=== PATIENT | female | born 1960 | race Caucasian/White ===

== ENCOUNTER → 2020-12-31 08:26 | Outpatient (BNVA) | payer OTHER, SELFPAY | PROVIDERS: PCP Hospitalist; Visit Provider Internal Medicine Cardiovascular Disease | DX: I44.7 Left bundle-branch block, unspecified (principal); E78.5 Hyperlipidemia, unspecified; R55 Syncope and collapse | CPT/HCPCS: 93005 ==

== ENCOUNTER 2021-01-09 08:45 | Outpatient (REF) | payer OTHER, SELFPAY ==
[2021-01-09 09:49] LABS: Cholesterol 262 mg/dL; HDL Cholesterol 67 mg/dL; LDL Cholesterol Calculated 179 mg/dl; Triglycerides 83 mg/dL
[2021-01-10 12:02] LABS: CRP High Sensitivity 0.8 mg/L
== END 2021-01-09 08:46 | disposition home or self-care (01) ==
LOC: HO.LAB 08:45
PROVIDERS: PCP Hospitalist; Visit Provider Internal Medicine Cardiovascular Disease
DX: I25.10 Atherosclerotic heart disease of native coronary artery without angina pectoris (principal); E78.5 Hyperlipidemia, unspecified
CPT/HCPCS: 36415; 80061; 86141

== ENCOUNTER → 2021-02-15 08:29 | Outpatient (REF) | payer OTHER, SELFPAY ==
--- NOTE | 2021-02-15 08:33 | CA_ITS ---
Transthoracic Echocardiogram Patient (Last, First, Middle): Odette Mathew Mirela Gender: Female Date of : 1960 Age: 60 Procedure Date: 02/15/2021 Procedure Type: Transthoracic Echocardiogram Location: OP Height: 154.94 cm Weight: 58.97 kg BSA: 1.57 m2 Heart Rate: bpm BP: 120 / 60 mmHg Concrete Puddler: SAMREEN Referring MD: Wicho Sawyer MD Symptoms: R55 - Syncope and collapse Study Quality: Fair ECG Rhythm: Sinus Conclusions: - The left ventricular systolic function is normal. The visually estimated ejection fraction is between 55-60%. - No obvious valvular pathology seen on this study. Findings Left Ventricle Normal left ventricular cavity size. There is normal left ventricular wall thickness. The left ventricular systolic function is normal. The visually estimated ejection fraction is between 55-60%. There is no evidence of regional wall motion abnormalities. Diastolic function is normal for age. Right Ventricle Normal right ventricular cavity size and systolic function. Atria The left atrium is normal in size. The right atrium is normal in size. Aortic Valve There is a normal trileaflet aortic valve. There is no aortic valve stenosis. There is no aortic valve regurgitation. Mitral Valve The mitral valve appears normal. There is trace mitral valve regurgitation. There is no mitral valve stenosis. Pulmonic Valve The pulmonic valve was not well visualized. Tricuspid Valve Normal tricuspid valve structure. There is mild tricuspid valve regurgitation. The pulmonary artery systolic pressure is normal. Great Vessels The aortic annulus, sinuses of valsalva, and asc aorta are normal in size. Venous The inferior vena cava is normal in size and collapses greater than 50% with inspiration. Pericardium/Pleural There is no evidence of pericardial effusion. Prior Study Comparison No significant change compared to prior study dated: 10/07/2018. Recommendations, Care & Conclusions No obvious valvular pathology seen on this study. Measurements 2D Linear Measurements IVSd: 0.89 0.6-0.9/0.6-1.0 cm LVIDd: 3.91 3.9-5.3/4.2-5.9 cm LVIDd Index: 2.49 2.4-3.2/2.2-3.1 cm/m2 LVIDs: 2.82 2.0-3.6 cm LVPWd: 0.87 0.7-1.1 cm Ao Root: 2.30 2.1-3.5 cm LA Diam: 2.60 2.7-3.8/3.0-4.0 cm LAIDs Index: 1.66 1.5-2.3 cm/m2 LV Mass: 127.71 67-162/88-224 g LV Mass Index: 81.34 43-95/49-115 g/m2 LVOT Diam: 2.00 3.0+(-)1.3 cm 2D Systolic Function EF 4C: 55.10 >55% EF 2C: 73.50 >55% EF BiP: 66.20 >55% Mitral Valve MV Pk E: 0.66 MV PK A: 0.63 MV Decel Time: 158.00 E/A: 1.10 E'Lateral: 11.50 E'Medial: 9.86 E/E' Med: 6.70 E/E' Lat: 5.70 PHT: 46.00 MVA PHT: 4.78 Decel [place]: 4.16 Aortic Valve AoV Pk Duke: 1.25 AoV Pk Grad: 6.00 LVOT LVOT Pk Duke: 1.06 LVOT Mn Duke: 0.63 LVOT VTI: 0.23 LVOT Pk Grad: 4.00 LVOT Mn Grad: 2.00 LVOT Diam: 2.00 LVOT Area: 3.14 Diastolic Function MV Pk E: 0.66 MV Pk A: 0.63 E/A: 1.10 E'Medial: 9.86 E/E' Med: 6.70 E' Laterial: 11.50 E/E' Lat: 5.70 Tricuspid Valve TR Pk Duke: 2.06 TR Pk Grad: 17.00 RA Press: 3.00 RVSP: 20.00 Great Vessels Aorta Ao Root-2D: 2.30 2.0-3.7 cm Ao Asc: 2.70 2.1-3.4 cm Updated in Other Vendor System with Status of Final Dennis Yeh MD electronically signed on 02/16/2021 1:39:54 PM with status of Final
== END ==
LOC: HO.CARD 08:29
PROVIDERS: Visit Provider Internal Medicine Cardiovascular Disease
DX: I44.7 Left bundle-branch block, unspecified (principal); R55 Syncope and collapse
CPT/HCPCS: 93306

== ENCOUNTER → 2021-02-20 10:47 | Outpatient (BNVA) | payer OTHER, SELFPAY | PROVIDERS: PCP Hospitalist; Visit Provider Internal Medicine Cardiovascular Disease ==

== ENCOUNTER → 2022-03-04 09:51 | Outpatient (BNVA) | payer OTHER, SELFPAY | PROVIDERS: PCP Hospitalist; Referring Provider Hospitalist; Visit Provider Internal Medicine Cardiovascular Disease | DX: I25.10 Atherosclerotic heart disease of native coronary artery without angina pectoris (principal); I44.7 Left bundle-branch block, unspecified; R55 Syncope and collapse | CPT/HCPCS: 93005 ==

== ENCOUNTER → 2023-02-25 10:41 | Outpatient (REF) | payer OTHER, SELFPAY ==
--- NOTE | 2023-02-25 10:44 | CA_ITS ---
Transthoracic Echocardiogram Patient (Last, First, Middle): Odette Mathew Mirela Gender: Female Date of : 1960 Age: 62 Procedure Date: 02/25/2023 Procedure Type: Transthoracic Echocardiogram Location: OP Height: 154.94 cm Weight: 58.97 kg BSA: 1.57 m2 Heart Rate: bpm BP: 112 / 60 mmHg Supervisor Fireworks Assembly: Referring MD: Wicho Sawyer MD Clipper Operator: Wicho Sawyer MD Symptoms: I44.7 - Left bundle-branch block, unspecified Study Quality: Adequate ECG Rhythm: Sinus Conclusions: - Essentially normal study Findings Left Ventricle Normal left ventricular size, thickness, and systolic function. The visually estimated ejection fraction is between 60-65%. There is paradoxical septal motion consistent with a left bundle branch block. Spectral Doppler is indicative of an impaired relaxation filling pattern. Right Ventricle Normal right ventricular cavity size and systolic function. Atria Both atria are normal in size. There is no evidence of interatrial shunt. Aortic Valve Normal aortic valve structure and function. There is no aortic valve stenosis. There is no aortic valve regurgitation. Mitral Valve Normal mitral valve structure and function. There is no mitral valve regurgitation. There is no mitral valve stenosis. Pulmonic Valve The pulmonic valve is likely normal. Tricuspid Valve Normal tricuspid valve structure. There is trace tricuspid valve regurgitation. The right ventricular systolic pressure is normal. The right ventricular systolic pressure is 20 mmHg. Normal right atrial pressure. There is no evidence of pulmonary hypertension. Great Vessels All visible segments of the aorta are normal in size. The pulmonary artery was not well visualized. Venous The inferior vena cava is normal in size and collapses greater than 50% with inspiration. Pericardium/Pleural There is no evidence of pericardial effusion. Prior Study Comparison No significant change compared to prior study dated: 02/15/2021. Measurements 2D Linear Measurements IVSd: 0.95 0.6-0.9/0.6-1.0 cm LVIDd: 3.22 3.9-5.3/4.2-5.9 cm LVIDd Index: 2.05 2.4-3.2/2.2-3.1 cm/m2 LVIDs: 2.11 2.0-3.6 cm LVPWd: 0.79 0.7-1.1 cm Ao Root: 2.70 2.1-3.5 cm LA Diam: 2.70 2.7-3.8/3.0-4.0 cm LAIDs Index: 1.72 1.5-2.3 cm/m2 LV Mass: 92.57 67-162/88-224 g LV Mass Index: 58.96 43-95/49-115 g/m2 LVOT Diam: 2.00 3.0+(-)1.3 cm 2D Systolic Function EF 4C: 65.90 >55% EF 2C: 66.50 >55% Mitral Valve MV Pk E: 0.63 MV PK A: 0.80 MV Decel Time: 160.00 E/A: 0.80 E'Lateral: 12.20 E'Medial: 9.68 E/E' Med: 6.50 E/E' Lat: 5.20 PHT: 47.00 MVA PHT: 4.68 Decel Eagle: 3.95 Aortic Valve AoV Pk Duke: 1.22 AoV Mn Duke: 0.76 AoV VTI: 0.31 AoV Pk Grad: 6.00 Aov Mn Grad: 3.00 CATARINO Cont.VTI: 1.75 LVOT LVOT Pk Duke: 0.81 LVOT Mn Duke: 0.48 LVOT VTI: 0.17 LVOT Pk Grad: 3.00 LVOT Mn Grad: 1.00 LVOT Diam: 2.00 LVOT Area: 3.14 Diastolic Function MV Pk E: 0.63 MV Pk A: 0.80 E/A: 0.80 E'Medial: 9.68 E/E' Med: 6.50 E' Laterial: 12.20 E/E' Lat: 5.20 Right Ventricle TAPSE (mm): 23.00 Tricuspid Valve TR Pk Duke: 2.07 TR Pk Grad: 17.00 RA Press: 3.00 RVSP: 20.00 Great Vessels Aorta Ao Root-2D: 2.70 2.0-3.7 cm Pulmonary Valve PV Pk Duke: 0.76 Peak PV Grad: 2.00 Updated in Other Vendor System with Status of Final Wicho Sawyer MD electronically signed on 02/25/2023 12:16:27 PM with status of Final
== END ==
LOC: HO.CARD 10:41
PROVIDERS: PCP Internal Medicine; Visit Provider Internal Medicine Cardiovascular Disease
DX: I25.10 Atherosclerotic heart disease of native coronary artery without angina pectoris (principal); I44.7 Left bundle-branch block, unspecified
CPT/HCPCS: 93306

== ENCOUNTER → 2023-03-12 10:00 | Outpatient (BNVA) | payer OTHER, SELFPAY | PROVIDERS: PCP Internal Medicine; Referring Provider Internal Medicine; Visit Provider Internal Medicine Cardiovascular Disease | DX: Z13.89 Encounter for screening for other disorder (principal) ==

== ENCOUNTER 2024-03-21 09:38 | Outpatient (AMB) | payer OTHER, SELFPAY ==
--- NOTE | 2024-03-21 09:44 | MHC.OFFVIS ---
Vital Signs 03/21/24 09:45 Height 5 ft 1 in Weight 116 lb 13.52 oz BMI 22.1 BP 110/72 Blood Pressure Location Lt brachial Position Sitting Pulse 76 Intake Visit Reasons: 1 YEAR FOLLOW UP Intake Note: 1 year follow-up with ekg feeling good Container Repairer Required: No Allergies Penicillins [PENICILLINS] Allergy (Severe, Verified 03/12/23 10:23) ANAPHYLAXIS sertraline [From ZOLOFT] Allergy (Severe, Verified 03/12/23 10:23) ANAPHYLAXIS, swelling of the mouth BLUE CHEESE Allergy (Unknown, Uncoded 08/09/20 18:26) DIFFICULTY BREATHING Statins Allergy (Unknown, Uncoded 11/29/19 00:00) Myositis Medication List - Last Reconciled 03/21/24 by Wicho Sawyer MD aspirin (Adult Aspirin Regimen) 81 mg PO DAILY calcium carbonate (Calcium 500) 500 mg PO DAILY celecoxib [id number] mg PO DAILY cetirizine (Zyrtec) 10 mg PO DAILY PRN evolocumab (Repatha SureClick) 140 mg subcut Q2W fluticasone propionate 50 mcg/actuation (Flonase Allergy Relief) 1 spray intranasal DAILY latanoprost 0.005% 1 drp ophthalmic (eye) DAILY levothyroxine 75 mcg PO DAILY multivitamin (Multiple Vitamins tablet) 1 tab PO DAILY omega-3 fatty acids 1,000 mg PO DAILY trazodone 50 mg PO BEDTIME HPI Comments Details: 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 She has been doing well. She has been having arthritic issue that prevents her from exercising regularly. She has not had any lightheaded episodes of syncopal episodes. She is maintaining adequate hydration. Denies any worsening shortness of breath, orthopnea, PND, leg edema. No prolonged palpitation irregular heartbeat. Denies any exertional chest pain. Intermittently gets chest pain which is atypical and she thinks it is musculoskeletal. [facility] Medical History CAD (coronary artery disease) Hyperlipidemia Hypothyroidism LBBB (left bundle branch block) Syncope Surgical History History of back surgery History of bunionectomy Hx of blepharoplasty Hx of knee surgery Hx of laminectomy Hx of tonsillectomy Family History Father No problems noted. Mother CAD (coronary artery disease) Brother Diabetes Review of Systems Const Denies chills, Denies fatigue, Denies fever(s), Denies frequent falls, Denies weakness, Denies weight gain and Denies weight loss ENT Denies dizziness Card Denies chest pain, Denies leg edema, Denies lightheadedness, Denies palpitations, Denies dyspnea, Denies dyspnea on exertion, Denies orthopnea and Denies other (loss of consciousness) Resp Denies cough, Denies dyspnea and Denies dyspnea on exertion GI Denies hematochezia and Denies change in stool character Musc Denies abnormal gait, Denies muscle weakness, Denies numbness, Denies radiating pain into limb and Denies tingling Neuro Denies abnormal gait, Denies dizziness, Denies frequent falls, Denies numbness, Denies tingling and Denies weakness Endo Denies fatigue and Denies palpitations Physical Exam Vital Signs: Last Vital Signs Pulse 76 03/21/24 09:45 BP 110/72 03/21/24 09:45 BMI result Body Mass Index 22.1 Const General: cooperative, comfortable, alert, awake and well groomed Nutritional Appearance: average body habitus Orientation/consciousness: patient oriented x3 Limitations: no limitations Neck Neck: Yes trachea midline, Yes supple and Yes no JVD Resp Effort & Inspection: normal respiratory effort Auscultation: clear to auscultation bilaterally Cardio Jugular venous distension: no JVD Palpation: normal PMI Rate: regular rate Rhythm: regular rhythm Heart sounds: S1 normal heart sound present and S2 normal heart sound present Neuro General: patient oriented x3 and no focal motor deficits Office Procedures EKG Details: EKG shows normal sinus rhythm with left bundle-branch block. [id number], Complete Assessment & Plan Assessment & Plan (1) CAD (coronary artery disease): Comment: LAD calcium score of 24 Code(s): I25.10 - Atherosclerotic heart disease of [place] coronary artery without angina pectoris Category: Medical Plan: Coronary artery disease, currently asymptomatic without any exertional symptoms. Continue aggressive risk factor modification. Low-dose aspirin therapy is recommended. Continue intense lipid modification. Currently on PCSK9 inhibitor therapy and tolerating well. Could not tolerate statin therapy. LDL is better optimized. Continue the same. Will look into by annual therapy. Advised to call me with any new symptoms. (2) LBBB (left bundle branch block): Code(s): I44.7 - Left bundle-branch block, unspecified Category: Medical Plan: Left bundle-branch block without any obvious symptoms. Continue to monitor clinically. Follow-up echocardiogram in 1 year's time. No interventions required per se for the same. (3) Syncope: Code(s): R55 - Syncope and collapse Category: Medical Plan: Prior history of syncope suspected to be orthostatic in nature. Currently with no symptoms. Pursuing orthostatic precautions. Continue adequate oral hydration. Advise to avoid prolonged standing postures. Will follow up in the clinic in 1 year's time, sooner p.r.n.. Thank you for allowing me to partake in her care Coding Level of Care Code Est Pt Level 4 (78489) Diagnoses CAD (coronary artery disease) I25.10 LBBB (left bundle branch block) I44.7 Syncope R55 CPT Codes EKG - CPT: 44165-[id number], Complete ([id number])
[2024-03-21 09:45] VITALS: BP 110/72; PULSE 76; BMI 22.1
== END 2024-03-21 10:09 | disposition home or self-care (01) ==
PROVIDERS: Visit Provider Internal Medicine Cardiovascular Disease
DX: I25.10 Atherosclerotic heart disease of native coronary artery without angina pectoris (principal); I44.7 Left bundle-branch block, unspecified; R55 Syncope and collapse
CPT/HCPCS: 93010; 99214

== ENCOUNTER → 2024-03-21 09:38 | Outpatient (BNVA) | payer OTHER, SELFPAY | PROVIDERS: Visit Provider Internal Medicine Cardiovascular Disease | DX: I25.10 Atherosclerotic heart disease of native coronary artery without angina pectoris (principal); I44.7 Left bundle-branch block, unspecified; R55 Syncope and collapse | CPT/HCPCS: 93005 ==

== ENCOUNTER 2024-06-10 08:06 | Outpatient (REF) | payer OTHER, SELFPAY ==
[2024-06-10 17:21] LABS: Cholesterol 200 mg/dL (<200); HDL Cholesterol 71 mg/dL (>40); LDL Cholesterol Calculated 105 mg/dL (<100); Triglycerides 122 mg/dL (<150)
[2024-06-13 13:43] LABS: CRP High Sensitivity 0.4 mg/L
== END 2024-06-10 08:07 | disposition home or self-care (01) ==
LOC: HO.LAB 08:06
PROVIDERS: PCP Internal Medicine; Visit Provider Nurse Practitioner
DX: I25.10 Atherosclerotic heart disease of native coronary artery without angina pectoris (principal)
CPT/HCPCS: 36415; 80061; 86141

== ENCOUNTER 2025-03-03 08:20 | Outpatient (REF) | payer OTHER, SELFPAY ==
--- OUTSIDE RECORDS SUMMARY | 2025-03-03 08:25 | XMS_ITS | Encounter Summary ---
Author Organization [facility] Address [address] [place] [address] Care Team Providers Care Target Setter Name Role Phone Pop Byrne Primary Care Provider [phone] Reason for Visit * Reason Onset Date Comments PAC Surgery/procedure Scheduling-David 2024 Encounter Details Date Type Department Care Team (Late st Contact Info) Description 02/20/2025 Telephone [facility] [place] [phone] Telephone Intake, Staff PAC Surgery/procedure Scheduling-David Social History Tobacco Use Types Packs/Day Years Used Date Smoking Tobacco: Never Smokeless Tobacco: Never Comments:: Alcohol Use Standard Drinks/Week Comments Not Currently 0 (1 standard drink = 0.6 oz pur e alcohol) Comments Unknown Sex and Gender Information Value Date Recorded Sex Assigned at Female 11/20/2023 11:04 AM EST Legal Sex Female 11:41 AM EDT Gender Identity Female 11/20/2023 11:04 AM EST Sexual Orientation Straight 12/05/2023 7: 02 PM EST documented as of this encounter Miscellaneous Notes * Telephone Encounter - Loretta Pool - 02/20/2025 4:25 PM EDT Needs to reschedule Injection for and reschedule for 04/04/25 if possible. Please call Odette at [phone] documented in this encounter Plan of Treatment Upcoming Encounters Date Type Department Care Team (Late st Contact Info) Description 04/04/2025 10:00 AM EDT Appointment [facility] [address] [place] [id number] Simone Hernandez MD PhD [address] [place] [id number] documented as of this encounter Visit Diagnoses Not on filedocumented in this encounter Care Teams Target Setter Relationship Specialty Start Date End Date Pop Byrne [address] [place] [address] PCP - General Internal Medicine 11/20/23 documented as of this encounter
--- OUTSIDE RECORDS SUMMARY | 2025-03-03 08:25 | XMS_ITS | Data Portability ---
Author Organization [facility], [address] Address [address] [place] [address] Care Team Providers Care Product Support Analyst Name Role Phone FLY REYES Primary Care Provider Assessment No assessment recorded. Plan of Treatment Reminders Order Date Submit Date Provider Last Modified By Organization Details Last Modified Time Details Appointments None recorded. Lab SARS CoV 2 (COVID-19) Ag, QL, IA, upper respiratory specimen 2024 025 [email or web address] [address] [place] [address], [phone], 5 13:51:42 rapid flu (A+B) 2024 025 [email or web address], [address] [place], [address], 5 13:51:42 Referral None recorded. Procedures None recorded. Surgeries None recorded. Imaging None recorded. Medication Orders prednisone 20 mg tablet 2024 025 [id number], [address], [place], [phone], 5 13:51:50 doxycycline hyclate 100 mg capsule 2024 025 [id number], [address], [place], [phone], 5 13:51:50 Arnuity Ellipta 100 mcg/actuati on powder for inhalation 2024 025 [id number], [address], [place], [phone], 13:58:08 Patient TargetsNo targets recorded. Patient Instructions Encounter Date Encounter Id Patient Instructions Last Modified By Organization Details Last Modified Time 12/04/2024 [id number] bronchitis: care instructions [email or web address] Not available 12/04/2024 13:51:42 Reason for Referral None Reported. Results Created Date Observation Date Name Description Value Unit Range Abnormal Flag Note LastModifiedBy Organization Detail LastModifiedTime 12/04/1912/04/2024 rapid flu (A+B) Unknown Analyte negati ve Not Available [facility] [address] [place] [address], [phone], 12/04/2024 13:36:04 12/04/19 25 12/04/2024 rapid flu (A+B) Unknown Analyte negati ve Not Available [facility] [address] [place] [address], [phone], 12/04/2024 13:36:04 12/04/19 25 12/04/2024 SARS CoV 2 (COVI D-19) Ag, QL, IA, upper respi rator y speci men Unknown Analyte negati ve Not Available [facility] [address] [place] [address], [phone], 12/04/2024 13:35:58 Result Notes None recorded. Problems Name Problem SNOMED Code Status Onset Date Resolution Date Notes Provider Name and Address Organization Details Recorded Time Asthma 332168002 Active Prisca calderon PA - [facility] 13:29:43 Hyperthyroidis m 79824597 Active Prisca calderon PA - [facility] 13:30:13 Arthritis 6965265 Active Prisca calderon PA - [facility] 13:30:29 Problem Notes None recorded. Medical Equipment None Reported. Allergies Allergen ID Allergen Name Allergen Category Reaction Reaction Severity Criticality Documentation Date Start Date Code Code System Note Provider Name and Address Organization Details Recorded Time 8432170 Product containin g penicilli n (product) medicatio n hives Not available Not available 12/04/2024 98831 8001 SNOMED Prisca Gutierrez yumiko PA - [facility] 13:27:57 5583559 Zoloft medicatio n swelling Not available Not available 12/04/2024 57364 RxNorm Prisca Gutierrez yumiko, MS - [facility] 13:28:15 Medications Name Sig Start Date Stop Date Status Note LastModified by Organization Details LastModified Time celecoxib 200 mg capsule TAKE 1 TO 2 CAPSULES BY MOUTH EVERY DAY WITH FOOD active Not Available Not Available No t Available cyclobenzap rine 10 mg tablet active Not Available Not Available Not Available latanoprost 0.005 % eye drops INSTILL 1 DROP INTO BOTH EYES EVERY EVENING active Not Available Not Available No t Available prednisone 10 mg tablet 12/04 completed Not Available Not Available Not Available doxycycline hyclate 100 mg capsule Take 1 capsule twice a day by oral route for 10 days. 2024 active Not Available Not Available Not Avai lable trazodone 50 mg tablet TAKE 1 TABLET BY MOUTH DAILY AT BEDTIME active Not Available Not Available No t Available azithromyci n 250 mg tablet TK 2 TS PO ON DAY 1, THEN TK 1 T PO D FOR 4 DAYS 12/04 completed Not Available Not Available Not Available prednisone 20 mg tablet Take 2 tablets every day by oral route for 5 days. 2024 active Not Available Not Available Not Avai lable alendronate 70 mg tablet TAKE 1 TABLET BY MOUTH ONCE WEEKLY active Not Available Not Available No t Available omeprazole 40 mg capsule,del ayed release TAKE 1 CAPSULE BY MOUTH TWICE DAILY 12/04 completed Not Available Not Available Not Available levothyroxi ne 75 mcg tablet TAKE 1 TABLET BY MOUTH DAILY active Not Available Not Available No t Available brimonidine 0.2 % eye drops INSTILL 1 DROP IN LEFT EYE TWICE DAILY active Not Available Not Available No t Available hydroxychlo roquine 200 mg tablet active Not Available Not Available No t Available ibuprofen 600 mg tablet 12/04 completed Not Available Not Available Not Available albuterol sulfate HFA 90 mcg/actuati on aerosol inhaler INHALE 2 PUFFS BY MOUTH EVERY 8 HOURS active Not Available Not Available No t Available naproxen 500 mg tablet TAKE 1 TABLET BY MOUTH TWICE DAILY active Not Available Not Available No t Available dorzolamide 2 % eye drops INSTILL 1 DROP IN BOTH EYES TWICE DAILY active Not Available Not Available No t Available ezetimibe 10 mg tablet TAKE 1 TABLET BY MOUTH DAILY active Not Available Not Available No t Available doxycycline hyclate 100 mg tablet,jill yed release TAKE 1 CAPSULE BY MOUTH EVERY 12 HOURS FOR 7 DAYS 12/04 completed Not Available Not Available Not Available chlorhexidi ne gluconate 0.12 % mouthwash 12/04 completed Not Available Not Available Not Available Arnuity Ellipta 100 mcg/actuati on powder for inhalation INHALE 1 PUFF BY MOUTH EVERY DAY active Not Available Not Available No t Available Repatha SureClick 140 mg/mL subcutaneou s pen injector active Not Available Not Available Not Available Vitals Date Recorded Body height Body mass index (BMI) Body weight Pain severity - 0-10 verbal numeric rating [Score] - Reported Oxygen saturation Oxygen saturation in Arterial blood by Pulse oximetry Heart rate Respiratory rate Body temperature Systolic blood pressure Diastolic blood pressure Provider Name and Address Organization Details Last Updated DateTime 154.94 cm 24.2 kg/m2 18237.8 2 g 0 98 % 98 % 84 /min 22 /min 97.3 [degF] 126 mm[Hg] 78 mm[Hg] Prisca SMITH - [facility] 13:33:48 Social History Question Answer Notes LastModified by Organizat ion Details LastModified Time Tobacco Smoking Status Never Smoker [facility] Oliveros - [facility] 12/04/2024 13:30:45 What Is Your Level Of Alcohol Consumption? None [email or web address] Information not available 12/04/2024 Are You Currently Employed? Yes [email or web address] Information not available 12/04/2024 Have You Had A Flu Shot This Season? Yes [email or web address] Information not available 12/04/2024 What Was The Date Of Your Most Recent Tobacco Screening? 12/04/2024 [email or web address] Information not available 12/04/2024 Do You Use Any Illicit Or Recreational Drugs? No [email or web address] Information not available 12/04/2024 Have You Recently Traveled Abroad? No [email or web address] Information not available 12/04/2024 Do You Or Have You Ever Used Any Other Forms Of Tobacco Or Nicotine? No [email or web address] Information not available 12/04/2024 Sex: Unknown Functional Status None recorded. Mental Status None recorded. Family History Nothing Reported. Medical History No medical history recorded. Gynecological HistoryNo gynecological history recorded. Obstetrics History GPAL:G 0 P 0 0 0 0 Past Encounters Encounter ID Performer Location Encounter Start Date Encounter Closed Date Diagnosis/Indication Diagnosis SNOMED-CT Code Diagnosis ICD10 Code Diagnosis Note [id number] [facility] [address] [address] 12/01/2020 12:30:13 12/01/2020 14:42:35 [id number] [facility] [address] 01/29/2018 18:25:16 01/29/2018 18:45:09 [id number] [facility] [address] [place] [address] 07/03/2021 14:36:31 07/03/2021 17:38:18 [id number] [facility] [address] [address] 08/26/2020 13:29:10 08/26/2020 14:39:43 [id number] [address] [address] [address] 06/11/2021 17:57:52 06/11/2021 19:15:35 [id number] [address] [place] [address] 05/23/2021 08:15:08 05/23/2021 09:02:48 [id number] [facility] [address] [place] [address] 03/29/2022 15:08:44 03/29/2022 16:28:26 [id number] Hiram Alexander DO [address] [address] [address] 12/04/2024 13:20:36 12/04/2024 13:59:24 Cough 39960665 R05.9 Given Hx and Sx will Rx Abx and steroid burstc/w albuterol prnTrial of mucinex prn congestion Humidified airrest, fluidstyle nol/ibu prn Patient advised to follow up as needed for worsening symptoms or no improvemen t. Discussed concerning red flags with patient and reasons to follow up in the Emergency Department urgently. Exacerbati on of intermittent asthma 923178978 J45.21 Rx as abovestart inhaler steroid controller dailyRevie wed with patient potential adverse side effects of the medication .f/u with PCP to determine need to c/w this medication Health Concerns Section Related Observation LastModified by Organization Detai ls LastModified Time None Recorded Concern Status LastModified by Organization Details LastModified Time None Recorded Advance Directives Directive None Recorded Payers Encounter Date Sequence Insurance Name Policy Number Policy Jerry Covered Member ID Jerry Member ID Guarantor Name 05/23/2021 1 [facility] [id number] 2 Odette M Culcea [id number] Odette Culcea 06/11/[address] [place] [address] [id number] 2 Odette M Culcea [id number] Odette Culcea 07/03/[address] [place] [address] [id number] 2 Odette M Culcea [id number] Odette Culcea 03/29/[address] [place] [address] [id number] 2 Odette M Culcea [id number] Odette Culcea 12/04/[address] [place] [address] [id number] 2 Odette M Culcea [id number] Odette Culcea Notes Date Note Type Note Provider Name and Address Organization Details Recorded Time 5 text/html CoughReported bypatient.Notes:64 yo female c/o cough x 10 d,fever last night to 100.1+ congestion + h/o asthmano controlleralbuterol prn Was treated in early October with azithromycin and prednisone uses albuterol 2-3 x/dnonsmoker No chillsNo nauseaNo vomitingNo wheezeNo difficulty breathing or respiratory distressNo CPNo sinus painNo ear painNo sore throatNo Abdominal painNo diarrheaNo myalgiaNo fatigueNo rashNo HANo dizzinessNo recent travelNo known sick contacts Hiram Alexander, DO [address], [place], [address], PA - [facility] 12/04/2024 14:01:26 OBGyn Episode No OBEpisode recorded.
--- OUTSIDE RECORDS SUMMARY | 2025-03-03 08:25 | XMS_ITS ---
[facility] Organization Unknown Encounters Encounter Type Encounter Reason Primary Diagnosis Location Date Ambulatory [facility] 12/04/2024
--- OUTSIDE RECORDS SUMMARY | 2025-03-03 08:25 | XMS_ITS | Clinical Summary ---
Author Organization [email or web address] Address [address] [place] [address] Care Team Providers Care Director Home Health Name Role Phone Unavailable Primary Care Provider Unavailabl e Immunizations Name Administration Dates Next Due COVID-19 Non-US Vaccine, Pro duct Unknown 11/25/2022 Influenza Injectable Quadriv alant Preservative Free IIV4 MDCK 08/18/2023,08/07/2022,08/08/2021,2019 Influenza Whole 08/22/2020 Influenza injectable quadriv alent IIV4 with preservative 08/03/2019,08/04/2018 Influenza, IIV3, injectable 08/03/2024,0 08/18/2023,08/07/2022,2020,07/24/2021,08/08/2020,08/22/2019,0 08/03/2019,08/18/2018,08/04/2018, 017,09/05/2016,08/24/2015 Influenza, seasonal, injecta ble, preservative free 08/03/2024 Moderna Covid-19 Vaccine 12+ 10/04/2021,09/23/20 21,10/23/2020 Moderna Covid-19 Vaccine 6+ Bivalent 11/25/2022 Pfizer Covid-19 Vaccine 12+ 08/12/2024, 3 Rabies, IM Diploid Cell Culture 10/06/2016,09/22,09/15/2016 Tdap 10/14/2024,08/23/2016,07/24/2006 Zoster, Recombinant 12/02/2021,08/23/2021 Social History Tobacco Use Types Packs/Day Years Used Date Smoking Tobacco: Never Assessed Comments Unknown Sex and Gender Information Value Date Recorded Sex Assigned at Female 09/22/2022 10:37 AM EDT Legal Sex Female 10:37 AM EDT Gender Identity Female 09/22/2022 10:37 AM EDT Sexual Orientation Straight 09/22/2022 10 :37 AM EDT Plan of Treatment Health Maintenance Due Date Last Done Comments CT Colonography 1960 Colonoscopy 1960 Colorectal Cancer Screening 1960 Depression Screening 1960 FIT DNA/Cologuard 1960 FIT 1960 FOBT 1960 HIV Screening 1960 SDOH Screening 1960 Sigmoidoscopy 1960 Alcohol/Substance Use Screening 1972 Tobacco Screening 1972 Hepatitis C Screening 1978 Pneumococcal Vaccine: 50+ Years (1 of 2 - PCV) 1979 Pap Smear 1981 Cervical Cancer Screening 1990 HPV/Cotest 1990 Mammogram 2000 RSV Patients and Patients Aged 60 years or older (1 - Risk 60-74 years 1-dose series) 2020 DTaP/Tdap/Td Vaccines (4 - Td or Tdap) 10/14/2034 10/14/2024, 08/23/2016, 07/24/2006 Zoster Vaccines Completed 12/02/2021, 08/23/2021 Influenza Vaccine Completed 08/03/2024, , 08/18/2023, Additional history exists COVID-19 Vaccine Completed 08/12/2024, , 11/25/2022, Additional history exists HIB Vaccines Aged Out No longer eligi ble based on patient's age to complete this topic HPV Vaccines Aged Out No longer eligi ble based on patient's age to complete this topic Hepatitis A Vaccines Aged Out No long er eligible based on patient's age to complete this topic Hepatitis B Vaccines Aged Out No long er eligible based on patient's age to complete this topic IPV Vaccines Aged Out No longer eligi ble based on patient's age to complete this topic Meningococcal Vaccine Aged Out No carleen valentin eligible based on patient's age to complete this topic RSV under 20 months Aged Out No longe r eligible based on patient's age to complete this topic Rotavirus Vaccines Aged Out No longer eligible based on patient's age to complete this topic Insurance [facility]
--- OUTSIDE RECORDS SUMMARY | 2025-03-03 08:25 | XMS_ITS | Referral Summary ---
Author Organization [facility] Address [address] [place] [address] Care Team Providers Care Farmer Tree [employer] Nut [employer]ps Name Role Phone Pop Byrne Primary Care Provider [phone] Encounters Date Type Department Care Team Description 02/21/2025 Telephone [facility] [address] [place] [address] Telephone Intake, Staff PAC Surgery/procedure Scheduling - David 02/20/2025 Telephone [facility] [address] [place] [phone] Telephone Intake, Staff PAC Surgery/procedure Scheduling-David 02/14/2025 Telephone [facility] [address] [place] [phone] Simone Hernandez MD PhD 02/07/2025 3:00 PM EDT Office Visit [facility] [address] [place] [phone] Simone Hernandez MD PhD Radiculopathy of lumbar region (Primary Dx) 12/15/2024 3:30 PM EST Office Visit [facility] [address] [place] [phone] Sarah Frank NP Radiculopathy of lumbar region (Primary Dx) from Last 3 Months Allergies Active Allergy Reactions Criticality Noted Date Comments Penicillins Hives High Sertraline Angioedema High Medications aspirin 81 mg EC tablet 162 mg daily. Active cholecalciferol (VITAMIN D3) 50,000 unit capsule Take 1 capsule (50,000 Units total) by mouth once a week. 12 capsule 3 02/13/2020 Active celecoxib (CeleBREX) 200 mg capsule Take 200 mg by mouth 2 times a day. Active cetirizine (ZyrTEC) 10 mg tablet Take 10 mg by mouth once a day. Active EPINEPHrine (EPIPEN) 0.3 mg/0.3 mL injection syringe Inject 0.3 mg into the outer thigh muscle as directed as needed for anaphylaxis. 06/03/2023 Active Repatha SureClick 140 mg/mL pen injector Inject 140 mg under the skin every 14 days. 11/17/2023 Active latanoprost (XALATAN) 0.005% ophthalmic solution Instill 1 drop into both eyes once a day. 10/14/2023 Active levothyroxine (SYNTHROID, LEVOTHROID) 75 mcg tablet Take 75 mcg by mouth daily. Active traZODone (DESYREL) 50 mg tablet Take 50 mg by mouth nightly. 03/15/2023 Active cyclobenzaprine (FLEXERIL) 10 mg tablet Take 1 tablet (10 mg total) by mouth 3 times a day as needed for muscle spasms. 30 tablet 3 12/09/2023 Active hydroxychloroqu ine (PLAQUENIL) 200 mg tablet Take 1 tablet (200 mg total) by mouth 2 times a day. 60 tablet 5 12/09/2023 Active brimonidine (ALPHAGAN) 0.2% ophthalmic solution SMARTSI Drop(s) Left Eye Twice Daily 05/05/2024 Active dorzolamide (TRUSOPT) 2% ophthalmic solution SMARTSI Drop(s) In Eye(s) Twice Daily 12/05/2024 Active cyclobenzaprine (FLEXERIL) 10 mg tablet Take 1 tablet (10 mg total) by mouth 3 times a day as needed for muscle spasms for up to 10 days. 30 tablet 12/15/2024 Active dorzolamide-sharon oloL (COSOPT) 22.3-6.8 mg/mL ophthalmic solution SMARTSI Drop(s) In Eye(s) Twice Daily 01/12/2025 Active Active Problems Problem Noted Date Diagnosed Date Cellulitis of ankle 09/21/2016 Lumbar herniated disc 05/31/2015 Lumbar radiculopathy 05/30/2015 Pre-operative exam 03/21/2014 Scoliosis 03/17/2014 Social History Tobacco Use Types Packs/Day Years Used Date Smoking Tobacco: Never Smokeless Tobacco: Never Tobacco Cessation:Counseling Given: Not Answered Comments:: Alcohol Use Standard Drinks/Week Comments Not Currently 0 (1 standard drink = 0.6 oz pur e alcohol) Comments Unknown Sex and Gender Information Value Date Recorded Sex Assigned at Female 11/20/2023 11:04 AM EST Legal Sex Female 11:41 AM EDT Gender Identity Female 11/20/2023 11:04 AM EST Sexual Orientation Straight 12/05/2023 7: 02 PM EST Last Filed Vital Signs Vital Sign Reading Time Taken Comments Blood Pressure 137/80 06/15/2024 1:51 PM EDT Pulse 70 06/15/2024 1:51 PM EDT Temperature 36.5 ??C (97.7 ??F) 06/15/2024 12:56 PM E DT Respiratory Rate - - Oxygen Saturation 98% 06/15/2024 1:51 PM EDT Inhaled Oxygen Concentration - - Weight 56.2 kg (124 lb) 05/31/2015 2:25 PM EDT Height 156.2 cm (5' 1.5 ) 05/31/2015 2:25 PM EDT Body Mass Index 23.05 05/31/2015 2:25 PM EDT Plan of Treatment Upcoming Encounters Date Type Department Care Team (Late st Contact Info) Description 04/04/2025 10:00 AM EDT Appointment [facility] [address] [place] [address] Simone Hernandez MD PhD [address] [place] [address] Insurance [facility] Advance Directives Documents on File Type Date Recorded Patient Spring Repairer Helper Hand Expl anation Advance Directive 03/29/2014 12:00 AM Advan ce Care Directives Advance Directive 03/21/2014 12:00 AM kristy marino Dec Making (Adv.Dir) Care Teams Farmer [employer] Relationship Specialty Start Date End Date Pop Byrne [address] [place] [phone] PCP - General Internal Medicine 11/20/23
--- OUTSIDE RECORDS SUMMARY | 2025-03-03 08:25 | XMS_ITS | Clinical Summary ---
Author Organization [facility] Address [address] [place] [address] Care Team Providers Care Bookkeeper Receptionist Name Role Phone Pop Byrne Primary Care Provider [phone] Allergies Active Allergy Reactions Criticality Noted Date [...] radiculopathy 05/30/2015 Pre-operative exam 03/21/2014 Scoliosis 03/17/2014 Encounters Date Type Department Care Team Description 02/21/2025 Telephone [facility] A [address] [place] [phone] Telephone Intake, Staff PAC Surgery/procedure Scheduling - David 02/20/2025 Telephone [facility] [address] [place] [phone] Telephone Intake, Staff PAC Surgery/procedure Scheduling-David 02/14/2025 Telephone [facility] [address] [place] [phone] Simone Hernandez MD PhD 02/07/2025 3:00 PM EDT Office Visit [facility] [address] [place] [phone] Simone Hernandez MD PhD Radiculopathy of lumbar region (Primary Dx) 12/15/2024 3:30 PM EST Office Visit [facility] [address] [place] [phone] Sarah Frank NP Radiculopathy of lumbar region (Primary Dx) from Last 3 Months Family History Medical History Relation Name Comments Other Father Family History of chronic obstructive pulmonary disease Relation Name Status Comments Father Social History Tobacco Use Types Packs/Day Years [...] Info) Description 04/04/2025 10:00 AM EDT Appointment [facility] [address] [place] [address] Simone Hernandez MD PhD [address] [place] [address] Health Maintenance Due Date Last Done Comments Cervical Cancer Screening 1960 Cologuard 1960 Colon Cancer Screening 1960 Colonoscopy 1960 FOBT / Fit Test 1960 HIV Screening 1960 HPV and Pap Smear 1960 Hepatitis C Screening 1960 Pap Smear 1960 Sigmoidoscopy 1960 Pneumococcal Vaccine: 50+ Years (1 of 2 - PCV) 1979 Mammogram 2000 RSV Vaccine (60+ years old and patients) (1 - Risk 60-74 years 1-dose series) 2020 Alcohol/Substance Use Screening 11/23/2024 Depression Screening and Follow-Up 11/23/2024 Social Drivers of Health Annual Screening 11/23/2024 DTaP,Tdap,and Td Vaccines (4 - Td or Tdap) 10/14/2034 10/14/2024, 08/23/2016, 07/24/2006 Zoster Vaccines Completed 12/02/2021, 08/23/2021 Influenza Vaccine Completed 08/03/2024, , 08/07/2022, Additional history exists COVID-19 Vaccine Completed 08/12/2024, , 11/25/2022, Additional history exists Hepatitis B Vaccines Aged Out No long er eligible based on patient's age to complete this topic Insurance [facility] Advance Directives Documents on File Type Date Recorded Patient Sap Integration Architect Expl anation Advance Directive 03/29/2014 12:00 AM Yandyan miryam Care Directives Advance Directive 03/21/2014 12:00 AM kristy marino Dec Making (Adv.Dir) Care Teams Bookkeeper Receptionist Relationship Specialty Start Date End Date Pop Byrne [address] [place] [phone] PCP - General Internal Medicine 11/20/23
--- OUTSIDE RECORDS SUMMARY | 2025-03-03 08:25 | XMS_ITS | Encounter Summary ---
Author Organization [facility] Address [address] [place] [address] Care Team Providers Care Or Scrub Tech Name Role Phone Pop Byrne Primary Care Provider [phone] Reason for Visit * Reason Onset Date Comments PAC Surgery/procedure Scheduling - David 11/2024 Encounter Details Date Type Department Care Team (Late st Contact Info) Description 02/21/2025 Telephone [facility] [address] [phone] Telephone Intake, Staff PAC Surgery/procedure Scheduling - David Social History Tobacco Use Types Packs/Day Years [...] encounter Miscellaneous Notes * Telephone Encounter - Praveena Valero - 02/21/2025 9:35 AM EDT Pt is calling to cancel her injection genesis with David on 02/24 and she would like to reschedule. Ploease call back at [phone] documented in this encounter Plan of Treatment Upcoming Encounters Date Type Department Care Team (Late Contact Info) Description 04/04/2025 10:00 AM EDT Appointment [facility] [address] [place] [phone] Simone Hernandez MD PhD [address] [place] [address] documented as of this encounter Visit Diagnoses Not on filedocumented in this encounter Care Teams Or Scrub Tech Relationship Specialty Start Date End Date Pop Byrne [address] [place] [address] PCP - General Internal Medicine 11/20/23 documented as of this encounter
[2025-03-03 12:08] LABS: Anion Gap 13 (12-20); Blood Urea Nitrogen 15 mg/dL (9-16); Calcium 8.8 mg/dL (8.4-10.2); Carbon Dioxide 23 mmol/L (22-29); Chloride 108 mmol/L (96-108); Cholesterol 121 mg/dL (<200); Estimated Glomerular Filt Rate > 60; Glucose Random 99 mg/dL (60-115); HDL Cholesterol 54 mg/dL (>40); LDL Cholesterol Calculated 48 mg/dL (<100); Potassium 4.2 mmol/L (3.3-5.1); Sodium 140 mmol/L (135-145); Triglycerides 98 mg/dL (<150)
== END 2025-03-03 08:21 | disposition home or self-care (01) ==
LOC: HO.HHCL 08:20
PROVIDERS: Visit Provider Nurse Practitioner
DX: I25.10 Atherosclerotic heart disease of native coronary artery without angina pectoris (principal); E78.5 Hyperlipidemia, unspecified
CPT/HCPCS: 36415; 80048; 80061

== ENCOUNTER → 2025-03-15 14:52 | Outpatient (REF) | payer OTHER, SELFPAY ==
--- NOTE | 2025-03-15 14:54 | CA_ITS ---
Transthoracic Echocardiogram Patient (Last, First, Middle): Odette Mathew Mirela Gender: Female Date of : 1960 Age: 64 Procedure Date: 03/15/2025 Procedure Type: Transthoracic Echocardiogram Location: OP Height: 154.94 cm Weight: 58.06 kg BSA: 1.56 m2 Heart Rate: bpm BP: 135 / 95 mmHg Fixture Maker: Referring MD: Wicho Sawyer MD Symptoms: I44.7 - Left bundle-branch block, unspecified Study Quality: Adequate ECG Rhythm: Sinus Conclusions: - The left ventricular systolic function is normal. The calculated ejection fraction is 61% by biplane method. - No obvious valvular pathology seen on this study. Findings Left Ventricle Normal left ventricular cavity size. There is normal left ventricular wall thickness. The left ventricular systolic function is normal. The calculated ejection fraction is 61% by biplane method. There is no evidence of regional wall motion abnormalities. There is paradoxical septal motion consistent with a left bundle branch block. Diastolic function is normal for age. Right Ventricle Normal right ventricular cavity size and systolic function. Atria Both atria are normal in size. Aortic Valve There is a normal trileaflet aortic valve. There is no aortic valve stenosis. There is no aortic valve regurgitation. Mitral Valve The mitral valve appears normal. There is trace mitral valve regurgitation. There is no mitral valve stenosis. Pulmonic Valve The pulmonic valve is likely normal. Tricuspid Valve There is trace tricuspid valve regurgitation. There is no evidence of pulmonary hypertension. Great Vessels The asc aorta is normal in size. Venous The inferior vena cava is normal in size and collapses greater than 50% with inspiration. Pericardium/Pleural There is no evidence of pericardial effusion. Prior Study Comparison No significant change compared to prior study dated: 02/25/2023. Recommendations, Care & Conclusions No obvious valvular pathology seen on this study. Measurements 2D Linear Measurements IVSd: 0.90 0.6-0.9/0.6-1.0 cm LVIDd: 3.18 3.9-5.3/4.2-5.9 cm LVIDd Index: 2.04 2.4-3.2/2.2-3.1 cm/m2 LVIDs: 2.08 2.0-3.6 cm LVPWd: 0.91 0.7-1.1 cm Ao Root: 2.70 2.1-3.5 cm LA Diam: 2.80 2.7-3.8/3.0-4.0 cm LAIDs Index: 1.79 1.5-2.3 cm/m2 LV Mass: 96.01 67-162/88-224 g LV Mass Index: 61.55 43-95/49-115 g/m2 LVOT Diam: 2.00 3.0+(-)1.3 cm 2D Systolic Function EF 4C: 64.80 >55% EF 2C: 55.00 >55% EF BiP: 61.20 >55% Mitral Valve MV Pk E: 0.65 MV PK A: 0.71 MV Decel Time: 168.00 E/A: 0.90 E'Lateral: 11.20 E'Medial: 7.07 E/E' Med: 9.20 E/E' Lat: 5.80 PHT: 49.00 MVA PHT: 4.49 Decel [place]: 3.86 Aortic Valve AoV Pk Duke: 1.44 AoV Mn Duke: 0.96 AoV VTI: 0.32 AoV Pk Grad: 8.00 Aov Mn Grad: 4.00 CATARINO Cont.VTI: 1.99 LVOT LVOT Pk Duke: 1.06 LVOT Mn Duke: 0.68 LVOT VTI: 0.20 LVOT Pk Grad: 4.00 LVOT Mn Grad: 2.00 LVOT Diam: 2.00 LVOT Area: 3.14 Diastolic Function MV Pk E: 0.65 MV Pk A: 0.71 E/A: 0.90 E'Medial: 7.07 E/E' Med: 9.20 E' Laterial: 11.20 E/E' Lat: 5.80 Right Ventricle TAPSE (mm): 25.00 TVS' Duke: 12.00 Tricuspid Valve TR Pk Duke: 2.16 TR Pk Grad: 19.00 RA Press: 3.00 RVSP: 22.00 Great Vessels Aorta Ao Root-2D: 2.70 2.0-3.7 cm Ao Asc: 2.80 2.1-3.4 cm Pulmonary Valve PV Pk Duke: 1.11 Peak PV Grad: 5.00 Updated in Other Vendor System with Status of Final Dennis Yeh MD electronically signed on 03/16/2025 11:28:36 AM with status of Final
--- OUTSIDE RECORDS SUMMARY | 2025-03-15 17:44 | XMS_ITS | Encounter Summary ---
Author Organization [facility] Address [address] [place] [address] Care Team Providers Care Physics Department Chair Name Role Phone Pop Byrne Primary Care Provider [phone] Reason for Visit * Reason Onset Date Comments PAC Surgery/procedure Scheduling - David 11/2024 Encounter Details Date Type Department Care Team (Late st Contact Info) Description 02/21/2025 Telephone [facility] [address] [id number] Telephone Intake, Staff PAC Surgery/procedure Scheduling - [...] like to reschedule. Ploease call back at [phone] documented in this encounter Plan of Treatment Upcoming Encounters Date Type Department Care Team (Late Contact Info) Description 04/04/2025 10:00 AM EDT Appointment [facility] [address] [place] [address] Simone Hernandez MD PhD [address] [place] [address] documented as of this encounter Visit Diagnoses Not on filedocumented in this encounter Care Teams Physics Department Chair Relationship Specialty Start Date End Date Pop Byrne [address] [place] [address] PCP - General Internal Medicine 11/20/23 documented as of this encounter
--- OUTSIDE RECORDS SUMMARY | 2025-03-15 17:44 | XMS_ITS | Data Portability ---
Author Organization [facility] Address [address] [place] [address] Care Team Providers Care Commercial Illustrator Name Role Phone FLY REYES Primary Care Provider [phone] Assessment No assessment recorded. Plan of Treatment Reminders Order Date Submit Date Provider Last Modified By Organization Details Last Modified Time Details Appointments None recorded. Lab SARS CoV 2 (COVID-19) Ag, QL, IA, upper respiratory specimen 2024 025 [email or web address] [address] [place] [address], [phone], 5 13:51:42 rapid flu (A+B) 2024 025 [email or web address], [address] [place], [phone], 5 13:51:42 Referral None recorded. Procedures None recorded. Surgeries None recorded. Imaging None recorded. Medication Orders prednisone 20 mg tablet 2024 025 [id number], [address], [place], [phone], 5 13:51:50 doxycycline hyclate 100 mg capsule 2024 025 [id number], [address], [place], [id number], 5 13:51:50 Arnuity Ellipta 100 mcg/actuati on powder for inhalation 2024 025 [id number], [address], [place], [phone], 13:58:08 Patient TargetsNo targets recorded. Patient Instructions Encounter Date Encounter Id Patient Instructions Last Modified By Organization Details Last Modified Time 12/04/2024 [id number] bronchitis: care instructions [email or web address] Not available 12/04/2024 13:51:42 Reason for Referral None Reported. Results Created Date Observation Date Name Description Value Unit Range Abnormal Flag Note LastModifiedBy Organization Detail LastModifiedTime 12/04/1912/04/2024 rapid flu (A+B) Unknown Analyte negati ve Not Available [facility] [address] [place] [address], [phone], 12/04/2024 13:36:04 12/04/19 25 12/04/2024 rapid flu (A+B) Unknown Analyte negati ve Not Available [facility] [address] [place] [address], [phone], 12/04/2024 13:36:04 12/04/19 25 12/04/2024 SARS CoV 2 (COVI D-19) Ag, QL, IA, upper respi rator y speci men Unknown Analyte negati ve Not Available [facility] [address] [place] [address], [phone], 12/04/2024 13:35:58 Result Notes None recorded. Problems Name Problem SNOMED Code Status Onset Date Resolution Date Notes Provider Name and Address Organization Details Recorded Time Asthma 722820970 Active Prisca calderon PA - [facility] 13:29:43 Hyperthyroidis m 96379923 Active Prisca calderon PA - [facility] 13:30:13 Arthritis 5012268 Active Prisca calderon PA - [facility] 13:30:29 Problem Notes None recorded. Medical Equipment None Reported. Allergies Allergen ID Allergen Name Allergen Category Reaction Reaction Severity Criticality Documentation Date Start Date Code Code System Note Provider Name and Address Organization Details Recorded Time 4148616 Product containin g penicilli n (product) medicatio n hives Not available Not available 12/04/2024 36377 8001 SNOMED Prisca Gutierrez yumiko PA - [facility] 13:27:57 9112903 Zoloft medicatio n swelling Not available Not available 12/04/2024 59935 RxNorm Prisca Gutierrez yumiko, ID - [facility] 13:28:15 Medications Name Sig [...] Last Updated DateTime 154.94 cm 24.2 kg/m2 37471.8 2 g 0 98 % 98 % 84 /min 22 /min 97.3 [degF] 126 mm[Hg] 78 mm[Hg] Prisca SMITH - [facility] 13:33:48 Social History Question Answer Notes LastModified by Organizat ion Details LastModified Time Tobacco Smoking Status Never Smoker LUIS Oliveros - [facility] 12/04/2024 13:30:45 What Is Your Level Of Alcohol Consumption? None [email or web address] Information not available 12/04/2024 Are You Currently Employed? Yes [email or web address] Information not available 12/04/2024 Have You Had A Flu Shot This Season? Yes [email or web address] Information not available 12/04/2024 What Was The Date Of Your Most Recent Tobacco Screening? 12/04/2024 [email or web address] Information not available 12/04/2024 Do You Use Any Illicit Or Recreational Drugs? No [email or web address] Information not available 12/04/2024 Have You Recently Traveled Abroad? No [email or web address] Information not available 12/04/2024 Do You Or Have You Ever Used Any Other Forms Of Tobacco Or Nicotine? No [email or web address] Information not available 12/04/2024 Sex: Unknown Functional Status None recorded. Mental Status None recorded. Family History Nothing Reported. Medical History No medical history recorded. Gynecological HistoryNo gynecological history recorded. Obstetrics History GPAL:G 0 P 0 0 0 0 Past Encounters Encounter ID Performer Location Encounter Start Date Encounter Closed Date Diagnosis/Indication Diagnosis SNOMED-CT Code Diagnosis ICD10 Code Diagnosis Note [id number] [facility] [address] [address] 12/01/2020 12:30:13 12/01/2020 14:42:35 [id number] [facility] [address] 01/29/2018 18:25:16 01/29/2018 18:45:09 [id number] [facility] [address] [place] [address] 07/03/2021 14:36:31 07/03/2021 17:38:18 [id number] [facility] [address] [address] 08/26/2020 13:29:10 08/26/2020 14:39:43 [id number] [facility] [address] [address] 06/11/2021 17:57:52 06/11/2021 19:15:35 [id number] [facility] [address] [place] [address] 05/23/2021 08:15:08 05/23/2021 09:02:48 [id number] [facility] [address] [place] [address] 03/29/2022 15:08:44 03/29/2022 16:28:26 [id number] Hiram Alexander DO [facility] [address] [address] 12/04/2024 13:20:36 12/04/2024 13:59:24 Cough 59992325 R05.9 Given Hx and Sx will Rx Abx and steroid burstc/w albuterol prnTrial of mucinex prn congestion Humidified airrest, fluidstyle nol/ibu prn Patient advised to follow up as needed for worsening symptoms or no improvemen t. Discussed concerning red flags with patient and reasons to follow up in the Emergency Department urgently. Exacerbati on of intermittent asthma [id number] J45.21 Rx as abovestart inhaler steroid controller [...] Jerry Member ID Guarantor Name 05/23/2021 1 [facility] [id number] 2 Odette M Culcea [id number] Odette Culcea 06/11/[address] [place] [address] [id number] 2 Odette M Culcea [id number] Odette Culcea 07/03/[address] [place] [address] [id number] 2 Odette M Culcea [id number] Odette Culcea 03/29/[address] [place] [address] [id number] 2 Odette M Culcea [id number] Odette Culcea 12/04/[address] [place] [address] [id number] 2 Odette M Culcea [id number] Odette Culcea Notes Date Note Type Note [...] Alexander, DO [address], [place], [address], PA - [facility] 12/04/2024 14:01:26 OBGyn Episode No OBEpisode recorded.
--- OUTSIDE RECORDS SUMMARY | 2025-03-15 17:44 | XMS_ITS | Encounter Summary ---
Author Organization [facility] Address [address] [place] [address] Care Team Providers Care Wildlife Officer Name Role Phone Pop Byrne Primary Care Provider [phone] Reason for Visit * Reason Onset Date Comments PAC Surgery/procedure Scheduling-David 2024 Encounter Details Date Type Department Care Team (Late st Contact Info) Description 02/20/2025 Telephone [facility] [address] [id number] Telephone Intake, Staff PAC Surgery/procedure Scheduling-David Social [...] 04/04/25 if possible. Please call Odette at [phone] documented in this encounter Plan of Treatment Upcoming Encounters Date Type Department Care Team (Late st Contact Info) Description 04/04/2025 10:00 AM EDT Appointment [facility] [address] [place] [address] Simone Hernandez MD PhD [address] [place] [address] documented as of this encounter Visit Diagnoses Not on filedocumented in this encounter Care Teams Wildlife Officer Relationship Specialty Start Date End Date Pop Byrne [address] [place] [address] PCP - General Internal Medicine 11/20/23 documented as of this encounter
--- OUTSIDE RECORDS SUMMARY | 2025-03-15 17:44 | XMS_ITS | Referral Summary ---
Author Organization [facility] Address [address] [place] [address] Care Team Providers Care Comic Book Writer Name Role Phone Pop Byrne Primary Care Provider [phone] Encounters Date Type Department Care Team Description 02/21/2025 Telephone [facility] A [address] [place] [address] Telephone Intake, Staff PAC Surgery/procedure Scheduling - David 02/20/2025 Telephone [facility] A [address] [place] [address] Telephone Intake, Staff PAC Surgery/procedure Scheduling-David 02/14/2025 Telephone [facility] B [address] [place] [address] Simone Hernandez MD PhD 02/07/2025 3:00 PM EDT Office Visit [facility] A [address] [place] [address] Simone Hernandez MD PhD Radiculopathy of lumbar region (Primary Dx) 12/15/2024 3:30 PM EST Office Visit [facility] B [address] [place] [address] Sarah Frank NP Radiculopathy of lumbar region [...] [facility] [address] [place] [address] Simone Hernandez MD PhD [address] [place] [address] Insurance [facility] Advance Directives Documents on File Type Date Recorded 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
--- OUTSIDE RECORDS SUMMARY | 2025-03-15 17:44 | XMS_ITS | Clinical Summary ---
Author Organization [facility] Address [address] [place] [address] Care Team Providers Care Wheel Installer Name Role Phone Pop Byrne Primary Care Provider [phone] Allergies Active Allergy Reactions Criticality Noted Date [...] Department Care Team Description 02/21/2025 Telephone [facility] A [address] [place] [address] Telephone Intake, Staff PAC Surgery/procedure Scheduling - David 02/20/2025 Telephone [facility] A [address] [place] [address] Telephone Intake, Staff PAC Surgery/procedure Scheduling-David 02/14/2025 Telephone [facility] B [address] [place] [address] Simone Hernandez MD PhD 02/07/2025 3:00 PM EDT Office Visit [facility] A [address] [place] [address] Simone Hernandez MD PhD Radiculopathy of lumbar region (Primary Dx) 12/15/2024 3:30 PM EST Office Visit [facility] B [address] [place] [address] Sarah Frank NP Radiculopathy of lumbar region [...] Info) Description 04/04/2025 10:00 AM EDT Appointment [facility] [address] [place] [address] Simone Hernandez MD PhD [address] [place] [address] Health Maintenance Due Date Last Done Comments [...] Documents on File Type Date Recorded Patient Esthetics Instructor Expl anation Advance Directive 03/29/2014 12:00 AM Yandyan miryam Care Directives Advance Directive 03/21/2014 12:00 AM kristy [email or web address] Dec Making (Adv.Dir) Care Teams Wheel Installer Relationship Specialty Start Date End Date Pop Byrne [address] [place] [address] PCP - General Internal Medicine 11/20/23
--- OUTSIDE RECORDS SUMMARY | 2025-03-15 17:44 | XMS_ITS | Clinical Summary ---
Author Organization [facility] Address [address] [facility] [address] [place] [address] Care Team Providers Care Filter Tip Inspector Name Role Phone Unavailable Primary Care Provider [...] patient's age to complete this topic Insurance [facility]
== END ==
LOC: HO.CARD 14:52
PROVIDERS: PCP Nurse Practitioner Family; Visit Provider Internal Medicine Cardiovascular Disease
DX: I44.7 Left bundle-branch block, unspecified (principal)
CPT/HCPCS: 93306

== ENCOUNTER → 2025-03-15 14:54 | Outpatient (BNV) | payer OTHER, SELFPAY | PROVIDERS: PCP Nurse Practitioner Family; Visit Provider Internal Medicine | DX: I44.7 Left bundle-branch block, unspecified (principal) | CPT/HCPCS: 93306 ==

== ENCOUNTER 2025-04-03 12:28 | Outpatient (AMB) | payer OTHER, SELFPAY ==
--- NOTE | 2025-04-03 12:44 | A.OFFVIS_ITS ---
Vital Signs 04/03/25 12:46 Height 5 ft 1 in Weight 127 lb 13.89 oz BMI 24.2 BP 110/72 Blood Pressure Location Lt brachial Position Sitting Pulse 86 Intake Visit Reasons: LT shoulder replacement/-19/NEOS Intake Note: Left shoulder replacement NEOS with ekg feeling good Carpenter Helper Required: No Allergies Penicillins [PENICILLINS] Allergy (Severe, Verified 03/12/23 10:23) ANAPHYLAXIS sertraline [From ZOLOFT] Allergy (Severe, Verified 03/12/23 10:23) ANAPHYLAXIS, swelling of the mouth BLUE CHEESE Allergy (Unknown, Uncoded 08/09/20 18:26) DIFFICULTY BREATHING Statins Allergy (Unknown, Uncoded 11/29/19 00:00) Myositis Medication List - Last Reconciled 04/03/25 by Wicho Sawyer MD aspirin (Adult Aspirin Regimen) 81 mg PO DAILY bimatoprost 0.01% (Lumigan) drps ophthalmic (eye) calcium carbonate (Calcium 500) 500 mg PO DAILY celecoxib 12333i338 mg PO DAILY cetirizine (Zyrtec) 10 mg PO DAILY PRN dorzolamide 2% drps ophthalmic (eye) evolocumab (Repatha SureClick) 140 mg subcut Q2W ezetimibe (Zetia) 10 mg PO DAILY 90 days fluticasone propionate 50 mcg/actuation (Flonase Allergy Relief) 1 spray intranasal DAILY levothyroxine 75 mcg PO DAILY multivitamin (Multiple Vitamins tablet) 1 tab PO DAILY omega-3 fatty acids 1,000 mg PO DAILY trazodone 50 mg PO BEDTIME HPI Comments Details: Odette comes for follow-up. She is scheduled to undergo left shoulder surgery under general anesthesia in near future. 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 She is currently on Z-Jose came off acute bronchitis. Denies any active wheezing. Denies any orthopnea, PND, leg edema. No exertional chest pain. Recent echocardiogram shows normal LV ejection fraction. Her most recent LDL is 48 mg/dL. She complains of flu-like symptoms for a day after she gets her Repatha injection. [facility] Medical History CAD (coronary artery disease) Syncope Hypothyroidism Hyperlipidemia LBBB (left bundle branch block) Surgical History Hx of laminectomy Hx of blepharoplasty Hx of knee surgery Hx of tonsillectomy History of bunionectomy History of back surgery Family History Father No problems noted. Mother CAD (coronary artery disease) Brother Diabetes Review of Systems Const Denies chills, Denies fatigue, Denies fever(s), Denies frequent falls, Denies weakness, Denies weight gain and Denies weight loss ENT Denies dizziness Card Denies chest pain, Denies leg edema, Denies lightheadedness, Denies palpitations, Denies dyspnea, Denies dyspnea on exertion, Denies orthopnea and Denies other (loss of consciousness) Resp Denies cough, Denies dyspnea and Denies dyspnea on exertion GI Denies hematochezia and Denies change in stool character Musc Denies abnormal gait, Denies muscle weakness, Denies numbness, Denies radiating pain into limb and Denies tingling Neuro Denies abnormal gait, Denies dizziness, Denies frequent falls, Denies numbness, Denies tingling and Denies weakness Endo Denies fatigue and Denies palpitations Physical Exam Vital Signs: Last Vital Signs Pulse 86 04/03/25 12:46 BP 110/72 04/03/25 12:46 BMI result Body Mass Index 24.2 Const General: cooperative, comfortable, alert, awake and well groomed Nutritional Appearance: average body habitus Orientation/consciousness: patient oriented x3 Limitations: no limitations Neck Neck: Yes trachea midline, Yes supple and Yes no JVD Resp Effort & Inspection: normal respiratory effort Auscultation: clear to auscultation bilaterally Cardio Jugular venous distension: no JVD Palpation: normal PMI Rate: regular rate Rhythm: regular rhythm Heart sounds: S1 normal heart sound present and S2 normal heart sound present Neuro General: patient oriented x3 and no focal motor deficits Office Procedures EKG Details: EKG shows normal sinus rhythm with left bundle-branch block, unchanged from before [id number]-[id number], Complete Assessment & Plan Assessment & Plan (1) CAD (coronary artery disease): Comment: LAD calcium score of 24 Code(s): I25.10 - Atherosclerotic heart disease of [place] coronary artery without angina pectoris Category: Medical Plan: CAD with elevated coronary calcium score in LAD territory without any new concerning symptoms at this point time. Her shortness of breath appears to be due to deconditioning pulmonary issues. At this point time she is optimized with medical therapy. Will continue aspirin a long run. She is having side effect with Mar having viral syndrome for 1 day after every injection which is quite limiting for her with symptoms. Will consider switching her to inclisiran therapy which can be eventually pushed up to every 6 months. He has an excellent result with PCSK9 inhibitor therapy along with ezetimibe therapy with LDL of 48 which will significantly reduce her future cardiovascular risk. She is willing to try that. (2) LBBB (left bundle branch block): Code(s): I44.7 - Left bundle-branch block, unspecified Category: Medical Plan: Left bundle-branch block which is chronic and stable. Echocardiogram shows preserved LV ejection fraction. Repeat echocardiogram every 3 years. No interventions required (3) Syncope: Code(s): R55 - Syncope and collapse Category: Medical Plan: Prior history of syncope related to orthostasis. This is normalized and improved with oral fluid intake. Advised to continue to participate in adequate salt and water intake. Orthostatic precautions were discussed. (4) Preoperative cardiovascular examination: Code(s): Z01.810 - Encounter for preprocedural cardiovascular examination Plan: Preoperative cardiovascular risk stratification prior to left shoulder replacement surgery which is going to be done under general anesthesia. This is considered intermediate risk surgery. However she has no new concerning symptoms at good functional capacity. She is optimized to undergo this surgery with low risk for perioperative cardiovascular morbidity mortality. She had advised to hold aspirin as indicated by Orthopedic surgery for 5-7 days prior to the surgery and resume as soon as possible after the surgery. Continue all his medications in the perioperative time. Will follow up in the clinic in 1 year's time, sooner p.r.n.. Thank you for allowing me to partake in her care Coding Level of Care Code Est Pt Level 4 (89783) Complex EM visit Add On G2211 Diagnoses CAD (coronary artery disease) I25.10 LBBB (left bundle branch block) I44.7 Syncope R55 Preoperative cardiovascular examination Z01.810 CPT Codes EKG - CPT: 29664-Xojsebsxasmnvrbcv, Complete ([id number])
[2025-04-03 12:46] VITALS: BP 110/72; PULSE 86; BMI 24.2
--- OUTSIDE RECORDS SUMMARY | 2025-04-03 12:56 | XMS_ITS | Clinical Summary ---
Author Organization [facility] Address [address] [place] [address] Care Team Providers Care Napper Fixer Name Role Phone Pop Byrne Primary Care Provider [phone] Allergies Active Allergy Reactions Criticality Noted Date Comments Penicillins Hives High Sertraline Angioedema High Medications aspirin 81 mg EC tablet 162 mg daily. Active cholecalcifero l (VITAMIN D3) 50,000 unit capsule Take 1 capsule (50,000 Units total) by mouth once a week. 12 capsule 3 02/13/20 20 Active celecoxib (CeleBREX) 200 mg capsule Take 200 mg by mouth 2 times a day. Active cetirizine (ZyrTEC) 10 mg tablet Take 10 mg by mouth once a day. Active EPINEPHrine (EPIPEN) 0.3 mg/0.3 mL injection syringe Inject 0.3 mg into the outer thigh muscle as directed as needed for anaphylaxis. 06/03/20 Active Repatha SureClick 140 mg/mL pen injector Inject 140 mg under the skin every 14 days. 11/17/20 23 Active latanoprost (XALATAN) 0.005% ophthalmic solution Instill 1 drop into both eyes once a day. 10/14/20 23 Active levothyroxine (SYNTHROID, LEVOTHROID) 75 mcg tablet Take 75 mcg by mouth daily. Active traZODone (DESYREL) 50 mg tablet Take 50 mg by mouth nightly. 03/15/20 23 Active cyclobenzaprin e (FLEXERIL) 10 mg tablet Take 1 tablet (10 mg total) by mouth 3 times a day as needed for muscle spasms. 30 tablet 3 12/09/19 24 Active brimonidine (ALPHAGAN) 0.2% ophthalmic solution SMARTSI Drop(s) Left Eye Twice Daily 05/05/20 24 Active dorzolamide (TRUSOPT) 2% ophthalmic solution SMARTSI Drop(s) In Eye(s) Twice Daily 12/05/19 25 Active dorzolamide-ti moloL (COSOPT) 22.3-6.8 mg/mL ophthalmic solution SMARTSI Drop(s) In Eye(s) Twice Daily 01/12/20 25 Active azithromycin (ZITHROMAX) 250 mg tablet Take 2 tablets by mouth on day 1, then take 1 tablet by mouth once daily on days 2 thru 5. 6 tablet 04/01/20 25 025 Active codeine-guaiFE Nesin (CHERATUSSIN AC) 20-200 mg/10 mL liquid Take 10 mL (20 mg of codeine total) by mouth every 8 hours as needed for cough or congestion for up to 5 days. 120 mL 04/01/20 25 025 Active hydroxychloroq uine (PLAQUENIL) 200 mg tablet Take 1 tablet (200 mg total) by mouth 2 times a day. 60 tablet 5 12/09/19 24 025 Discontinued cyclobenzaprin e (FLEXERIL) 10 mg tablet Take 1 tablet (10 mg total) by mouth 3 times a day as needed for muscle spasms for up to 10 days. 30 tablet 12/15/19 25 025 Discontinued Active Problems Problem Noted Date Diagnosed Date Cellulitis of ankle 09/21/2016 Lumbar herniated disc 05/31/2015 Lumbar radiculopathy 05/30/2015 Pre-operative exam 03/21/2014 Scoliosis 03/17/2014 Encounters Date Type Department Care Team Description 04/01/2025 Orders Only [facility] [address] [place] [address] Warranty Clerk: Shala Wise MD 02/21/2025 Telephone [facility] [address] [address] Telephone Intake, Staff PAC Surgery/procedure Scheduling - David 02/20/2025 Telephone [facility] A [address] [place] [address] Telephone Intake, Staff PAC Surgery/procedure Scheduling-David 02/14/2025 Telephone [facility] B [address] [place] [address] Simone Hernandez MD PhD 02/07/2025 3:00 PM EDT Office Visit [facility] [address] [place] [address] Simone Hernandez MD PhD Radiculopathy of lumbar region (Primary Dx) from [...] 05/31/2015 2:25 PM EDT Plan of Treatment Health Maintenance Due [...] patient's age to complete this topic Insurance Advance Directives Documents on File Type Date Recorded 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
--- OUTSIDE RECORDS SUMMARY | 2025-04-03 12:56 | XMS_ITS | Referral Summary ---
Author Organization [facility] Address [address] [place] [address] Care Team Providers Care Char Belt Operator Name Role Phone Pop Byrne Primary Care Provider [phone] Encounters Date Type Department Care Team Description 04/01/2025 Orders Only [facility] [address] [place] [address] Supervisory Training Specialist: Shala Wise MD 02/21/2025 Telephone [facility] [address] [place] [address] Telephone Intake, Staff PAC Surgery/procedure Scheduling - David 02/20/2025 Telephone [facility] [address] [place] [address] Telephone Intake, Staff PAC Surgery/procedure Scheduling-David 02/14/2025 Telephone [facility] B [address] [place] [address] Simone Hernandez MD PhD 02/07/2025 3:00 PM EDT Office Visit [facility] [address] [place] [address] Simone Hernandez MD PhD Radiculopathy of lumbar region (Primary Dx) from Last 3 Months Allergies Active Allergy Reactions Criticality Noted Date Comments Penicillins Hives High Sertraline Angioedema High Medications aspirin 81 mg EC tablet 162 mg daily. Active cholecalcifero l (VITAMIN D3) 50,000 unit capsule Take 1 capsule (50,000 Units total) by mouth once a week. 12 capsule 3 02/13/20 Active celecoxib (CeleBREX) 200 mg capsule Take [...] under the skin every 14 days. 11/17/20 Active latanoprost (XALATAN) 0.005% ophthalmic solution Instill 1 drop into both eyes once a day. 10/14/20 Active levothyroxine (SYNTHROID, LEVOTHROID) 75 mcg tablet Take 75 mcg by mouth daily. Active traZODone (DESYREL) 50 mg tablet Take 50 mg by mouth nightly. 03/15/20 Active cyclobenzaprin e (FLEXERIL) 10 mg tablet [...] up to 10 days. 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
--- OUTSIDE RECORDS SUMMARY | 2025-04-03 12:56 | XMS_ITS | Data Portability ---
Author Organization [facility] Address [address] [place] [address] Care Team Providers Care Renal Dialysis Technician Name Role Phone FLY REYES Primary Care Provider Assessment No assessment recorded. Plan of Treatment Reminders Order Date Submit Date Provider Last Modified By Organization Details Last Modified Time Details Appointments None recorded. Lab SARS CoV 2 (COVID-19) Ag, QL, IA, upper respiratory specimen 2024 025 [email or web address] [facility], [address] [place] [address], [phone], 5 13:51:42 rapid flu (A+B) 2024 025 [email or web address] [facility], [address] [place], [phone], 5 13:51:42 Referral None recorded. Procedures None recorded. Surgeries None recorded. Imaging None recorded. Medication Orders prednisone 20 mg tablet 2024 025 [id number], [address], [place], [id number], 5 13:51:50 doxycycline hyclate 100 mg capsule 2024 025 [id number], [address], [place], [id number], 5 13:51:50 Arnuity Ellipta 100 mcg/actuati on powder for inhalation 2024 025 [id number], [address], [place], [phone], 13:58:08 Patient TargetsNo targets recorded. Patient Instructions Encounter Date Encounter Id Patient Instructions Last Modified By Organization Details Last Modified Time 12/04/2024 [id number] bronchitis: care instructions [email or web address] Not available 12/04/2024 13:51:42 Reason for Referral None Reported. Results Created Date Observation Date Name Description Value Unit Range Abnormal Flag Note LastModifiedBy Organization Detail LastModifiedTime 12/04/1912/04/2024 rapid flu (A+B) Unknown Analyte negati ve Not Available [facility] [address] [place] [address], [phone], 12/04/2024 13:36:04 12/04/19 25 12/04/2024 rapid flu (A+B) Unknown Analyte negati ve Not Available [facility] [address] [place] [address], [phone], 12/04/2024 13:36:04 12/04/19 25 12/04/2024 SARS CoV 2 (COVI D-19) Ag, QL, IA, upper respi rator y speci men Unknown Analyte negati ve Not Available [facility] [address] [place] [address], [phone], 12/04/2024 13:35:58 Result Notes None recorded. Problems Name Problem SNOMED Code Status Onset Date Resolution Date Notes Provider Name and Address Organization Details Recorded Time Asthma 237911648 Active Prisca calderon PA - [facility] 13:29:43 Hyperthyroidis m 28515135 Active Prisca calderon PA - [facility] 13:30:13 Arthritis 3950987 Active Prisca calderon PA - [facility] 13:30:29 Problem Notes None recorded. Medical Equipment None Reported. Allergies Allergen ID Allergen Name Allergen Category Reaction Reaction Severity Criticality Documentation Date Start Date Code Code System Note Provider Name and Address Organization Details Recorded Time 6287957 Product containin g penicilli n (product) medicatio n hives Not available Not available 12/04/2024 02880 8001 SNOMED Prisca Gutierrez yumiko PA - [facility] 13:27:57 0005626 Zoloft medicatio n swelling Not available Not available 12/04/2024 79999 RxNorm Prisca Gutierrez [place], [place] - [facility] 13:28:15 Medications Name Sig [...] Last Updated DateTime 154.94 cm 24.2 kg/m2 85439.8 2 g 0 98 % 98 % 84 /min 22 /min 97.3 [degF] 126 mm[Hg] 78 mm[Hg] Prisca SMITH - [facility] 13:33:48 Social History Question Answer Notes LastModified by Organizat ion Details LastModified Time Tobacco Smoking Status Never Smoker LUIS Oliveros - [facility] 12/04/2024 13:30:45 Have You Had A Flu Shot This Season? Yes [email or web address] Information not available 12/04/2024 What Was The Date Of Your Most Recent Tobacco Screening? 12/04/2024 [email or web address] Information not available 12/04/2024 Have You Recently Traveled Abroad? No Information not available 12/04/2024 Sex: Unknown Functional Status Question Answer Note LastModified by Organizat ion Details LastModified Time Do you use any illicit or recreational drugs? No [email or web address] Information not available 12/04/2024 Do you or have you ever used any other forms of tobacco or nicotine? No [email or web address] Information not available 12/04/2024 What is your level of alcohol consumption? None [email or web address] Information not available 12/04/2024 Are you currently employed? Yes [email or web address] Information not available 12/04/2024 Mental Status None recorded. Family History Nothing Reported. Medical History No medical history recorded. Gynecological HistoryNo gynecological history recorded. Obstetrics History GPAL:G 0 P 0 0 0 0 Past Encounters Encounter ID Performer Location Encounter Start Date Encounter Closed Date Diagnosis/Indication Diagnosis SNOMED-CT Code Diagnosis ICD10 Code Diagnosis Note [id number] [address] [facility] [address] 12/01/2020 12:30:13 12/01/2020 14:42:35 [id number] [facility] [address] 01/29/2018 18:25:16 01/29/2018 18:45:09 [id number] [facility] [address] [address] 07/03/2021 14:36:31 07/03/2021 17:38:18 [id number] [facility] [address] [address] 08/26/2020 13:29:10 08/26/2020 14:39:43 [id number] [facility] [address] [place] [address] 06/11/2021 17:57:52 06/11/2021 19:15:35 [id number] [facility] [address] [place] [address] 05/23/2021 08:15:08 05/23/2021 09:02:48 [id number] [facility] [address] [place] [address] 03/29/2022 15:08:44 03/29/2022 16:28:26 [id number] [place] [address] [place] [address] 12/04/2024 13:20:36 12/04/2024 13:59:24 Cough 82462552 R05.9 Given Hx and Sx will Rx Abx and steroid burstc/w albuterol prnTrial of mucinex prn congestion Humidified airrest, fluidstyle nol/ibu prn Patient advised to follow up as needed for worsening symptoms or no improvemen t. Discussed concerning red flags with patient and reasons to follow up in the Emergency Department urgently. Exacerbati on of intermittent asthma 115836632 J45.21 Rx as abovestart inhaler steroid controller dailyRevie wed with patient potential adverse side effects of the medication .f/u with PCP to determine need to c/w this medication Health Concerns Section Related Observation LastModified by Organization Detai ls LastModified Time None Recorded Concern Status LastModified by Organization Details LastModified Time None Recorded Advance Directives Directive None Recorded Payers Insurance Date Sequence Insurance Name Policy Number Policy Jerry Covered Member ID Jerry Member ID Guarantor Name 12/04/2024 1 [facility] [id number] 2 Odette Mathew [id number] Odette Mathew Notes Date Note Type Note Provider Name [...] dizzinessNo recent travelNo known sick contacts Hiram Alexander DO [address] [place], [address], [place] - [facility] 12/04/2024 14:01:26 OBGyn Episode No OBEpisode recorded.
--- OUTSIDE RECORDS SUMMARY | 2025-04-03 12:56 | XMS_ITS | Encounter Summary ---
Author Organization [facility] Address [address] [place] [address] Care Team Providers Care Pet Ambassador Name Role Phone Pop Byrne Primary Care Provider [phone] Encounter Details Date Type Department Care Team (Late st Contact Info) Description 04/01/2025 Orders Only [facility] [address] [place] [address] Professional Bondsman: Shala Wise MD [address] [place] [address] Social History Tobacco Use Types Packs/Day Years [...] PM EST documented as of this encounter Progress Notes * Shala Humphrey MD - 04/01/2025 7:34 PM EDT Pt called with persistent cough and expectoration for 5 days after travelling. Covid testing negative. Rec zpack, codeine syrup x 5 days Follow up w PCP documented in this encounter Plan of Treatment Not on file documented as of this encounter Visit Diagnoses Not on filedocumented in this encounter Care Teams Pet Ambassador Relationship Specialty Start Date End Date Pop Byrne [address] [place] [address] PCP - General Internal Medicine 11/20/23 documented as of this encounter
--- OUTSIDE RECORDS SUMMARY | 2025-04-03 12:56 | XMS_ITS | Clinical Summary ---
Author Organization [employer] Address [address] [facility] [address] [place] [address] Care Team Providers Care Salesperson Art Objects Name Role Phone Unavailable Primary Care Provider [...] patient's age to complete this topic Insurance [facility]
== END 2025-04-03 13:09 | disposition home or self-care (01) ==
PROVIDERS: PCP Nurse Practitioner Gerontology; Visit Provider Internal Medicine Cardiovascular Disease
DX: I25.10 Atherosclerotic heart disease of native coronary artery without angina pectoris (principal); I44.7 Left bundle-branch block, unspecified; R55 Syncope and collapse; Z01.810 Encounter for preprocedural cardiovascular examination
CPT/HCPCS: 93010; 99214

== ENCOUNTER → 2025-04-03 12:28 | Outpatient (BNVA) | payer OTHER, SELFPAY | PROVIDERS: PCP Nurse Practitioner Family; Visit Provider Internal Medicine Cardiovascular Disease | DX: Z01.810 Encounter for preprocedural cardiovascular examination (principal); I25.10 Atherosclerotic heart disease of native coronary artery without angina pectoris; I44.7 Left bundle-branch block, unspecified; R55 Syncope and collapse | CPT/HCPCS: 93005 ==